=== PATIENT | male | born 1975 | race Caucasian/White ===

== ENCOUNTER 2017-09-29 05:56 | Day surgery (SDC) | payer MEDICARE, BC ==
[2017-09-29] MEDS ORDERED: CEFAZOLIN 2 GM/50 ML (PMX) 50 ML IVPB (06:42)
[2017-09-29] MEDS ORDERED: SUCCINYLCHOLINE CHLORIDE 100 MG/5 ML SYG IV (07:00)
[2017-09-29] MEDS ORDERED: CEFAZOLIN 1 GM INJ (07:21)
[2017-09-29] MEDS ORDERED: NEOSTIGMINE 3 MG/3 ML SYRINGE (07:21)
[2017-09-29] MEDS ORDERED: PROPOFOL 20 ML (07:21)
[2017-09-29] MEDS ORDERED: ROCURONIUM 50 MG INJ (07:21)
[2017-09-29] MEDS ORDERED: GLYCOPYRROLATE 0.4 MG INJ (07:21)
[2017-09-29] MEDS ORDERED: FENTAnyl 50 MCG/ML VIAL ×3 (07:22→08:57)
[2017-09-29] MEDS ORDERED: DEXAMETHASONE 4 MG/ML 1 ML INJ (07:22)
[2017-09-29] MEDS ORDERED: MIDAZOLAM 1 MG/ML 2 ML INJ (07:22)
[2017-09-29] MEDS ORDERED: ONDANSETRON 4 MG INJ (07:22)
[2017-09-29] MEDS ORDERED: ROPIVACAINE 0.5 % 30 ML VIAL (07:28)
[2017-09-29] MEDS: EPINEPHrine 1 MG/ML 30 ML INJ (08:27)
[2017-09-29] MEDS: morphine SULFATE/PF (10 MG/10 ML) INJ (08:28)
[2017-09-29] MEDS ORDERED: ALBUTEROL 0.083% (NEB) 2.5 MG/3 ML AMP HHN (08:30)
[2017-09-29] MEDS ORDERED: OXYCODONE/ACETAMINOPHEN (5/325) TAB PO ×2 (08:30)
[2017-09-29] MEDS ORDERED: LABETALOL HCL 20MG INJ IV (08:30)
[2017-09-29] MEDS ORDERED: FENTAnyl 50 MCG/ML VIAL IV ×3 (08:30)
[2017-09-29] MEDS ORDERED: HYDROmorphONE 1 MG/5 ML IV SYRINGE IV ×3 (08:30)
[2017-09-29] MEDS ORDERED: IPRATROPIUM (NEB) 0.5 MG/2.5 ML AMP HHN (08:30)
[2017-09-29] MEDS ORDERED: DIPHENHYDRAMINE 50 MG INJ IV (08:30)
[2017-09-29] MEDS ORDERED: MEPERIDINE 25 MG INJ IV (08:30)
[2017-09-29] MEDS ORDERED: ONDANSETRON 4 MG INJ IV (08:30)
[2017-09-29] MEDS ORDERED: EPHEDrine SULFATE 50 MG/5 ML SYG IV (08:30)
[2017-09-29] MEDS ORDERED: MIDAZOLAM 1 MG/ML 2 ML INJ IV (08:30)
[2017-09-29] MEDS ORDERED: TRIMETHOBENZAMIDE 100 MG/ML VIAL IM (08:30)
[2017-09-29] MEDS ORDERED: SUGAMMADEX SODIUM 200 MG/2 ML VIAL IV (09:22)
[2017-09-29] MEDS: hydrALAzine 20 MG INJ IV (10:29)
[2017-09-29] MEDS: SODIUM CL BACTERIOSTATIC 30 ML INJ (11:54)
== END 2017-09-29 13:32 | disposition home or self-care (01) ==
LOC: SDS 05:56
DX: S43.431A Superior glenoid labrum lesion of right shoulder, initial encounter (principal); M75.41 Impingement syndrome of right shoulder; Z87.891 Personal history of nicotine dependence
CPT/HCPCS: 29823

== ENCOUNTER 2018-06-01 05:42 | Day surgery (SDC) | payer MEDICARE, BC ==
[2018-06-01] MEDS ORDERED: LIDOCAINE 2% (SDV) 5 ML INJ (07:30)
[2018-06-01] MEDS ORDERED: CEFAZOLIN 1 GM INJ (07:30)
[2018-06-01] MEDS ORDERED: MEPERIDINE 100 MG INJ (07:30)
[2018-06-01] MEDS ORDERED: PROPOFOL 20 ML (07:30)
[2018-06-01] MEDS: POLYMYXIN/BACITRACIN 1L IRRIG IRR ×2 (08:09→08:55)
[2018-06-01] MEDS ORDERED: DIPHENHYDRAMINE 50 MG INJ IV (08:30)
[2018-06-01] MEDS ORDERED: hydrALAzine 20 MG INJ IV (08:30)
[2018-06-01] MEDS ORDERED: LABETALOL HCL 20MG INJ IV (08:30)
[2018-06-01] MEDS ORDERED: FENTAnyl 50 MCG/ML VIAL IV ×3 (08:30)
[2018-06-01] MEDS ORDERED: METOCLOPRAMIDE 10 MG INJ IV (08:30)
[2018-06-01] MEDS ORDERED: OXYCODONE/ACETAMINOPHEN (5/325) TAB PO ×2 (08:30)
[2018-06-01] MEDS ORDERED: EPHEDrine SULFATE 50 MG/5 ML SYG IV (08:30)
[2018-06-01] MEDS ORDERED: HYDROmorphONE 1 MG/5 ML IV SYRINGE IV ×3 (08:30)
[2018-06-01] MEDS ORDERED: MIDAZOLAM 1 MG/ML 2 ML INJ IV (08:30)
[2018-06-01] MEDS ORDERED: POLYMYXIN/BACITRACIN 1L IRRIG (08:55)
[2018-06-01] MEDS: morphine SULFATE/PF (10 MG/10 ML) INJ (08:55)
[2018-06-01] MEDS: ONDANSETRON 4 MG INJ IV (09:28)
[2018-06-01] MEDS: MEPERIDINE 25 MG INJ IV (09:29)
[2018-06-01] MEDS: ALBUTEROL 0.083% (NEB) 2.5 MG/3 ML AMP HHN (10:30)
== END 2018-06-01 15:25 | disposition home or self-care (01) ==
LOC: SDS 05:42
DX: G56.01 Carpal tunnel syndrome, right upper limb (principal); E78.5 Hyperlipidemia, unspecified; E66.01 Morbid (severe) obesity due to excess calories; J45.998 Other asthma
CPT/HCPCS: 64721; 94664

== ENCOUNTER 2018-06-03 10:39 | Inpatient (IN) | payer MEDICARE, BC ==
[2018-06-03] MEDS ORDERED: AZITHROMYCIN 250 MG TAB PO (11:07)
[2018-06-03 11:18] LABS: ADD MAN DIFF? NO
[2018-06-03 11:19] LABS: ABNORMAL IP MESSAGE 1; BASOPHILS % 0.3 % (0.0-2.0); EOSINOPHILS % 0.1 % (0.0-7.0); HEMATOCRIT 39.8 % (42.0-52.0); HEMOGLOBIN 13.5 g/dl (14.0-18.0); LYMPHOCYTES # 1.6 10^3/ul (0.8-2.9); LYMPHOCYTES % 13.5 % (15.0-51.0); MEAN CORPUSCULAR HEMOGLOBIN 30.1 pg (29.0-33.0); MEAN CORPUSCULAR HGB CONC 33.9 g/dl (32.0-37.0); MEAN CORPUSCULAR VOLUME 88.6 fl (82.0-101.0); MEAN PLATELET VOLUME 9.4 fl (7.4-10.4); MONOCYTE # 1.6 10^3/ul (0.3-0.9); MONOCYTES % 13.8 % (0.0-11.0); NEUTROPHIL # 8.3 10^3/ul (1.6-7.5); NEUTROPHILS % 71.9 % (39.0-77.0); PLATELET COUNT 188 10^3/UL (140-415); POSITIVE DIFF @See below; RED BLOOD COUNT 4.49 10^6/ul (4.70-6.10); RED CELL DISTRIBUTION WIDTH 12.1 % (11.5-14.5)
[2018-06-03 11:19] LABS: WHITE BLOOD COUNT 11.6 10^3/ul (4.8-10.8)
[2018-06-03] MEDS: CEFTRIAXONE 1 GM/50 ML (PMX) 50 ML IVPB (11:29)
[2018-06-03] MEDS: SODIUM CHLORIDE 0.9% 1L BAG IV* (11:29)
[2018-06-03 11:35] LABS: ALANINE AMINOTRANSFERASE 27 IU/L (13-69); ALBUMIN 4.6 g/dl (3.3-4.9); ALBUMIN/GLOBULIN RATIO 1.43; ALKALINE PHOSPHATASE 73 IU/L (42-121); ANION GAP 12 (5-13); ASPARTATE AMINO TRANSFERASE 32 IU/L (15-46); BILIRUBIN,INDIRECT 0.7 mg/dl (0-1.1); BILIRUBIN,TOTAL 0.7 mg/dl (0.2-1.3); BLOOD UREA NITROGEN 13 mg/dl (7-20); CALCIUM 9.5 mg/dl (8.4-10.2); CARBON DIOXIDE 29 mmol/L (21-31); CHLORIDE 99 mmol/L (97-110); CREATININE 0.99 mg/dl (0.61-1.24); Estimated GFR > 60 mL/min (>60); GLUCOSE 104 mg/dl (70-220); POTASSIUM 4.1 mmol/L (3.5-5.1); SODIUM 140 mmol/L (135-144); TOTAL PROTEIN 7.8 g/dl (6.1-8.1)
[2018-06-03 11:44] LABS: PROTIME 13.3 Sec (11.9-14.9)
[2018-06-03 11:45] LABS: PARTIAL THROMBOPLASTIN TIME 31.5 Sec (23.0-35.0)
[2018-06-03 11:47] LABS: B-TYPE NATRIURETIC PEPTIDE 437 PG/ML (0-125); TROPONIN-I 0.014 ng/ml (0.000-0.120)
[2018-06-03] MEDS: VANCOMYCIN 1 GM (PMX) 250 ML IVPB (11:58)
[2018-06-03] MEDS ORDERED: ACETAMINOPHEN 325 MG TAB PO ×2 (13:30→15:00)
[2018-06-03] MEDS ORDERED: ONDANSETRON 4 MG INJ IV ×2 (13:30→15:00)
[2018-06-03] MEDS: SOD CHLORIDE 0.9% 100 ML (13:51)
[2018-06-03] MEDS: IOHEXOL 100 ML (13:53)
[2018-06-03] MEDS ORDERED: NACL 0.9% 3 ML SYG IV (15:00)
[2018-06-03] MEDS ORDERED: LEVALBUTEROL (NEB) 0.63 MG/3 ML AMP HHN (15:00)
[2018-06-03] MEDS ORDERED: MAGNESIUM HYDROXIDE 30ML CUP PO (15:00)
[2018-06-03] MEDS ORDERED: DOCUSATE SODIUM 100 MG CAP PO (15:00)
[2018-06-03] MEDS ORDERED: GUAIFENESIN/DM 5ML CUP PO (15:00)
[2018-06-03] MEDS: AZITHROMYCIN 500MG/NS (PMX) 250 ML IV (16:20)
[2018-06-03] MEDS: SOD CHLORIDE 0.9% 1,000 ML IV ×2 (16:21→22:38)
[2018-06-03] MEDS ORDERED: SULINDAC 150 MG TAB PO (21:00)
[2018-06-03] MEDS: BACLOFEN 10 MG TAB PO (22:37)
[2018-06-03] MEDS: MONTELUKAST 10 MG TAB PO (22:37)
[2018-06-03] MEDS: CEFEPIME 1GM/50 ML (PMX) 50 ML IV (22:37)
[2018-06-04] MEDS: SOD CHLORIDE 0.9% 1,000 ML IV ×2 (00:27→10:19)
[2018-06-04] MEDS: HYDROCODONE/APAP (5/325) TAB PO (00:28)
[2018-06-04] MEDS: carBAMAZepine (XR) 200 MG TABSR PO ×3 (00:28→20:59)
[2018-06-04] MEDS: morphine 2 MG INJ IV (04:06)
[2018-06-04] MEDS: PANTOPRAZOLE (EC) 40 MG TAB PO (05:03)
[2018-06-04 06:22] LABS: ADD MAN DIFF? NO
[2018-06-04 06:26] LABS: WHITE BLOOD COUNT 8.1 10^3/ul (4.8-10.8)
[2018-06-04 06:26] LABS: BASOPHILS % 0.4 % (0.0-2.0); EOSINOPHILS % 0.2 % (0.0-7.0); HEMATOCRIT 34.9 % (42.0-52.0); HEMOGLOBIN 11.7 g/dl (14.0-18.0); LYMPHOCYTES # 1.3 10^3/ul (0.8-2.9); LYMPHOCYTES % 15.4 % (15.0-51.0); MEAN CORPUSCULAR HEMOGLOBIN 30.1 pg (29.0-33.0); MEAN CORPUSCULAR HGB CONC 33.5 g/dl (32.0-37.0); MEAN CORPUSCULAR VOLUME 89.7 fl (82.0-101.0); MEAN PLATELET VOLUME 9.7 fl (7.4-10.4); MONOCYTES % 12.2 % (0.0-11.0); NEUTROPHIL # 5.8 10^3/ul (1.6-7.5); NEUTROPHILS % 71.2 % (39.0-77.0); PLATELET COUNT 176 10^3/UL (140-415); RED BLOOD COUNT 3.89 10^6/ul (4.70-6.10); RED CELL DISTRIBUTION WIDTH 12.2 % (11.5-14.5)
[2018-06-04 06:56] LABS: ANION GAP 11 (5-13); BLOOD UREA NITROGEN 13 mg/dl (7-20); CALCIUM 9.1 mg/dl (8.4-10.2); CARBON DIOXIDE 25 mmol/L (21-31); CHLORIDE 105 mmol/L (97-110); CREATININE 0.95 mg/dl (0.61-1.24); Estimated GFR > 60 mL/min (>60); GLUCOSE 104 mg/dl (70-220); MAGNESIUM 1.9 mg/dl (1.7-2.5); POTASSIUM 4.2 mmol/L (3.5-5.1); SODIUM 141 mmol/L (135-144)
[2018-06-04] MEDS: VENLAFAXINE (XR) 75 MG CAP PO (09:21)
[2018-06-04] MEDS: CHOLECALCIFEROL 1,000 UNIT TAB PO (09:21)
[2018-06-04] MEDS: FOLIC ACID 1 MG TAB PO (09:21)
[2018-06-04] MEDS: PYRIDOXINE 50 MG TAB PO (09:21)
[2018-06-04] MEDS: CEFEPIME 1GM/50 ML (PMX) 50 ML IV ×2 (09:22→20:59)
[2018-06-04] MEDS: AZITHROMYCIN 500MG/NS (PMX) 250 ML IV (16:11)
[2018-06-04] MEDS: MONTELUKAST 10 MG TAB PO (20:59)
[2018-06-04] MEDS: BACLOFEN 10 MG TAB PO (20:59)
[2018-06-05] MEDS: HYDROCODONE/APAP (5/325) TAB PO (02:34)
[2018-06-05 05:37] LABS: ADD MAN DIFF? NO
[2018-06-05 05:40] LABS: WHITE BLOOD COUNT 8.3 10^3/ul (4.8-10.8)
[2018-06-05 05:40] LABS: BASOPHILS % 0.4 % (0.0-2.0); EOSINOPHILS % 0.4 % (0.0-7.0); HEMATOCRIT 39.4 % (42.0-52.0); HEMOGLOBIN 13.4 g/dl (14.0-18.0); LYMPHOCYTES # 1.7 10^3/ul (0.8-2.9); LYMPHOCYTES % 19.9 % (15.0-51.0); MEAN CORPUSCULAR HEMOGLOBIN 30.1 pg (29.0-33.0); MEAN CORPUSCULAR VOLUME 88.5 fl (82.0-101.0); MEAN PLATELET VOLUME 9.3 fl (7.4-10.4); MONOCYTE # 0.9 10^3/ul (0.3-0.9); MONOCYTES % 10.2 % (0.0-11.0); NEUTROPHIL # 5.7 10^3/ul (1.6-7.5); NEUTROPHILS % 68.6 % (39.0-77.0); PLATELET COUNT 233 10^3/UL (140-415); RED BLOOD COUNT 4.45 10^6/ul (4.70-6.10)
[2018-06-05 06:27] LABS: ANION GAP 12 (5-13); BLOOD UREA NITROGEN 12 mg/dl (7-20); CALCIUM 10.1 mg/dl (8.4-10.2); CARBON DIOXIDE 26 mmol/L (21-31); CHLORIDE 103 mmol/L (97-110); CREATININE 0.89 mg/dl (0.61-1.24); Estimated GFR > 60 mL/min (>60); GLUCOSE 112 mg/dl (70-220); POTASSIUM 4.2 mmol/L (3.5-5.1); SODIUM 141 mmol/L (135-144)
[2018-06-05] MEDS: PANTOPRAZOLE (EC) 40 MG TAB PO (06:40)
[2018-06-05] MEDS ORDERED: VANCOMYCIN IV PER PHARMACY XX (07:00)
[2018-06-05] MEDS: CHOLECALCIFEROL 1,000 UNIT TAB PO (08:22)
[2018-06-05] MEDS: FOLIC ACID 1 MG TAB PO (08:22)
[2018-06-05] MEDS: PYRIDOXINE 50 MG TAB PO (08:22)
[2018-06-05] MEDS: carBAMAZepine (XR) 200 MG TABSR PO ×2 (08:22→20:51)
[2018-06-05] MEDS: VENLAFAXINE (XR) 75 MG CAP PO (08:22)
[2018-06-05] MEDS: CEFEPIME 1GM/50 ML (PMX) 50 ML IV (09:13)
[2018-06-05] MEDS: VANCOMYCIN HCL 2 GM in SOD CHLORIDE 0.9% 500 ML IVPB (09:19)
[2018-06-05 10:40] LABS: ADD UMIC NO; UR ASCORBIC ACID NEGATIVE (NEGATIVE); UR BILIRUBIN (Dip) NEGATIVE (NEGATIVE); UR BLOOD (Dip) NEGATIVE (NEGATIVE); UR CLARITY CLEAR (CLEAR); UR COLOR YELLOW (YELLOW); UR GLUCOSE (Dip) NEGATIVE (NEGATIVE); UR KETONES (Dip) NEGATIVE (NEGATIVE); UR LEUKOCYTE ESTERASE (Dip) NEGATIVE Leu/ul (NEGATIVE); UR NITRITE (Dip) NEGATIVE (NEGATIVE); UR TOTAL PROTEIN (Dip) NEGATIVE (NEGATIVE); UR UROBILINOGEN (Dip) NEGATIVE (NEGATIVE)
[2018-06-05] MEDS: AMOXICILLIN/CLAV 875 MG TAB PO ×2 (16:01→20:51)
[2018-06-05] MEDS: AZITHROMYCIN 500MG/NS (PMX) 250 ML IV (16:02)
[2018-06-05] MEDS: BACLOFEN 10 MG TAB PO (20:51)
[2018-06-05] MEDS: MONTELUKAST 10 MG TAB PO (20:51)
[2018-06-05] MEDS ORDERED: CEFEPIME 2GM/50 ML IVPB (21:00)
[2018-06-05] MEDS: GUAIFENESIN/CODEINE 5ML CUP PO (21:52)
[2018-06-05] MEDS: morphine 2 MG INJ IV (21:52)
[2018-06-05] MEDS ORDERED: VANCOMYCIN HCL 1.5 GM in SOD CHLORIDE 0.9% 250 ML IVPB (22:00)
[2018-06-06] MEDS: PANTOPRAZOLE (EC) 40 MG TAB PO (06:41)
[2018-06-06] MEDS: CHOLECALCIFEROL 1,000 UNIT TAB PO (09:12)
[2018-06-06] MEDS: FOLIC ACID 1 MG TAB PO (09:12)
[2018-06-06] MEDS: VENLAFAXINE (XR) 75 MG CAP PO (09:12)
[2018-06-06] MEDS: carBAMAZepine (XR) 200 MG TABSR PO ×2 (09:13→20:49)
[2018-06-06] MEDS: AMOXICILLIN/CLAV 875 MG TAB PO ×2 (09:13→20:49)
[2018-06-06] MEDS: PYRIDOXINE 50 MG TAB PO (09:13)
[2018-06-06] MEDS ORDERED: VANCOMYCIN IV PER PHARMACY XX (14:00)
[2018-06-06] MEDS: AZITHROMYCIN 500MG/NS (PMX) 250 ML IV (15:57)
[2018-06-06] MEDS: MONTELUKAST 10 MG TAB PO (20:49)
[2018-06-06] MEDS: BACLOFEN 10 MG TAB PO (20:50)
[2018-06-06] MEDS: VANCOMYCIN HCL 2 GM in SOD CHLORIDE 0.9% 500 ML IVPB (23:44)
[2018-06-07] MEDS ORDERED: VANCOMYCIN HCL 1.5 GM in SOD CHLORIDE 0.9% 250 ML IVPB (04:00)
[2018-06-07] MEDS: PANTOPRAZOLE (EC) 40 MG TAB PO (06:44)
[2018-06-07 07:02] LABS: ADD MAN DIFF? NO
[2018-06-07 07:21] LABS: BASOPHILS % 0.5 % (0.0-2.0); HEMATOCRIT 41.5 % (42.0-52.0); HEMOGLOBIN 14.1 g/dl (14.0-18.0); LYMPHOCYTES # 1.5 10^3/ul (0.8-2.9); LYMPHOCYTES % 19.4 % (15.0-51.0); MEAN CORPUSCULAR HEMOGLOBIN 29.9 pg (29.0-33.0); MEAN CORPUSCULAR VOLUME 88.1 fl (82.0-101.0); MEAN PLATELET VOLUME 9.3 fl (7.4-10.4); MONOCYTE # 0.9 10^3/ul (0.3-0.9); MONOCYTES % 11.6 % (0.0-11.0); NEUTROPHIL # 5.1 10^3/ul (1.6-7.5); NEUTROPHILS % 67.7 % (39.0-77.0); PLATELET COUNT 243 10^3/UL (140-415); RED BLOOD COUNT 4.71 10^6/ul (4.70-6.10)
[2018-06-07 07:21] LABS: WHITE BLOOD COUNT 7.5 10^3/ul (4.8-10.8)
[2018-06-07 07:56] LABS: ANION GAP 16 (5-13); BLOOD UREA NITROGEN 15 mg/dl (7-20); CALCIUM 10.1 mg/dl (8.4-10.2); CARBON DIOXIDE 27 mmol/L (21-31); CHLORIDE 100 mmol/L (97-110); Estimated GFR > 60 mL/min (>60); GLUCOSE 78 mg/dl (70-220); MAGNESIUM 2.1 mg/dl (1.7-2.5); PHOSPHORUS 5.1 mg/dl (2.5-4.9); SODIUM 143 mmol/L (135-144)
[2018-06-07] MEDS: FOLIC ACID 1 MG TAB PO (09:07)
[2018-06-07] MEDS: VENLAFAXINE (XR) 75 MG CAP PO (09:07)
[2018-06-07] MEDS: AZITHROMYCIN 250 MG TAB PO (09:07)
[2018-06-07] MEDS: CHOLECALCIFEROL 1,000 UNIT TAB PO (09:07)
[2018-06-07] MEDS: carBAMAZepine (XR) 200 MG TABSR PO (09:07)
[2018-06-07] MEDS: PYRIDOXINE 50 MG TAB PO (09:07)
[2018-06-07] MEDS: AMOXICILLIN/CLAV 875 MG TAB PO (09:07)
[2018-06-07] MEDS: VANCOMYCIN HCL 1.5 GM in SOD CHLORIDE 0.9% 250 ML IVPB (12:56)
[2018-06-07 14:07] LABS: ANA SCREEN NEGATIVE (NEGATIVE)
[2018-06-07 14:52] LABS: MYELOPEROXIDASE ANTIBODY 2.5 AI; PROTEINASE-3 ANTIBODY <1.0 AI
[2018-06-07] MEDS: LEVOFLOXACIN 500 MG TAB PO (16:43)
[2018-06-07] MEDS: DOXYCYCLINE 100 MG TAB PO (16:43)
[2018-06-08 19:37] LABS: ANCA SCREEN NEGATIVE (NEGATIVE)
== END 2018-06-07 17:45 | disposition home or self-care (01) | DRG 206 ==
LOC: E/R 10:39 → 6WM 13:28
DX: J95.4 Chemical pneumonitis due to anesthesia (principal); Z98.890 Other specified postprocedural states; J45.909 Unspecified asthma, uncomplicated; F39 Unspecified mood [affective] disorder; K21.9 Gastro-esophageal reflux disease without esophagitis; G40.909 Epilepsy, unspecified, not intractable, without status epilepticus; E66.9 Obesity, unspecified; Z68.39 Body mass index [BMI] 39.0-39.9, adult; T41.0X5A Adverse effect of inhaled anesthetics, initial encounter; Y83.8 Other surgical procedures as the cause of abnormal reaction of the patient, or of later complication, without mention of misadventure at the time of the procedure
CPT/HCPCS: 36415; 71045; 71275; 80048; 80053; 81003; 83605; 83735; 83880; 84100; 84484; 85025; 85610; 85730; 86021; 86038; 87040; 87070; 96374; 96375; 99285-25